=== PATIENT | male | born 1980 | race Caucasian/White ===

== ENCOUNTER 2016-07-29 01:58 | Emergency (ER) | payer MEDICAID ==
[2016-07-29 02:58] LABS: % IMMATURE GRANULYOCYTES 0.5 % (0.0-1.1); ABSOLUTE IMMATURE GRANULOCYTES 0.04 10^3/uL (0.00-0.10); ADD DIFF? NO; ADD MORPH? NO; ADD SCAN? NO; ATYPICAL LYMPHOCYTE FLAG 50 (0-99); FRAGMENT RBC FLAG 0 (0-99); HEMATOCRIT 46.2 % (40.0-51.0); HEMOGLOBIN 16.1 g/dL (13.7-17.5); LEFT SHIFT FLG 0 (0-99); LIPEMIA HEMOLYSIS FLAG 90 (0-99); MEAN CELL HEMOGLOBIN 31.8 pg (27.9-34.1); MEAN CELL HEMOGLOBIN CONCENTR. 34.8 g/dL (32.4-36.7); MEAN CELL VOLUME 91.1 fL (81.5-99.8); MEAN PLATELET VOLUME 9.4 fL (8.7-11.7); PLATELET CLUMPS FLAG 30 (0-99); PLATELET COUNT 401 10^3/uL (150-400); RED BLOOD CELL COUNT 5.07 10^6/uL (4.40-6.38); RED CELL DISTRIBUTION WIDTH 12.2 % (11.5-15.2)
[2016-07-29 03:07] LABS: ANION GAP 19 mEq/L (8-16); CALCIUM 9.3 mg/dL (8.5-10.4); CARBON DIOXIDE 26 mEq/l (22-31); CHLORIDE 105 mEq/L (97-110); CREATININE 0.8 mg/dL (0.7-1.3); ETHANOL SERUM 113 mg/dL (0-10); GLOMERULAR FILTRATION RATE > 60; GLUCOSE 79 mg/dL (70-100); POTASSIUM 3.6 mEq/L (3.5-5.2); SODIUM 150 mEq/L (134-144)
--- NOTE | 2016-07-29 03:10 | EDPHY ---
HPI/HX/ROS/PE/MDM Narrative: Chief complaint: Suicidal ideation HPI: 36-year-old male presenting complaining of thoughts of suicide. He is thinking of hanging himself. Patient states that he has a history of depression in the past and has had a mental health admission and [place] in the past. He is not currently taking any medications. States that he has lost his place in a fdc and has opportunity for implement recently and this is causing him to feel increasingly depressed and suicidal. He has prior suicide attempts in the past. Does smoke, does drink occasional alcohol, does use occasional recreational drugs. Denies any recent illness. No fevers or chills. Denies any hallucinations. ROS: 10 point Review of Systems is negative except as noted in the HPI. Physical exam: Gen: Awake, Alert, No Distress HEENT: Nose: no rhinorrhea Eyes: PERRLA, EOMI Mouth: Moist mucosa Neck: Supple, no JVD Chest: nontender, lungs clear to auscultation Heart: S1, S2 normal, no murmur Abd: Soft, non-tender, no guarding Back: no CVA tenderness, no midline tenderness Ext: no edema, non-tender Skin: no rash Neuro: CN II-XII intact, Sensation grossly intact, Strength 5/5 in bilateral upper and lower extremities (Franki Smyth) 1500: Patient is signed out to me at change of shift by Dr. Hagan. I reviewed the chart. I went personally evaluated the patient. At the time of transfer care he was stable with no new complaints. 18 50: Psychiatric Services found placement for the patient. Placement facility requested an EKG due to cocaine use. EKG shows normal sinus rhythm, normal rate, normal axis, normal intervals. There are no ST or T-wave abnormalities. EKG is normal as interpreted by me. Patient is stable for transfer. (Tami Washington) ED Course: 36-year-old depressed mood with suicidal ideation here he is here voluntarily. Will go perform medical screening tests for medical clearance and obtained a health evaluation. Patient is medically cleared. Awaiting mental health evaluation. 0700 patient signed out to Dr. Scott pending mental health evaluation. (Franki Smyth) Care assumed 640am plan for psych evaluation. Not on mental health hold. 1030: placed on M1 by mental health clinic nurse, plan for psychiatric admission. Signed out to Dr. Tami Washington at 3:00 p.m. with plan for inpatient psychiatric placement. (Rashid Scott) - Data Points Laboratory Results: Laboratory Results 07/29/16 02:38 07/29/16 02:38 Medications Given: Discontinued Medications Lorazepam (Ativan) 1 mg PO EDNOW ONE Stop: 07/29/16 04:31 Last Admin: 07/29/16 04:30 Dose: 1 mg Lorazepam (Ativan) 1 mg PO EDNOW ONE Stop: 07/29/16 10:50 Last Admin: 07/29/16 10:51 Dose: 1 mg General Time Seen by Provider: 07/29/16 02:13 Initial Vital Signs: Initial Vital Signs Temperature (C) 36.4 C 07/29/16 02:04 Heart Rate 130 H 07/29/16 02:04 Respiratory Rate 16 07/29/16 02:04 Blood Pressure 156/109 H 07/29/16 02:04 O2 Sat (%) 93 07/29/16 02:04 O2 Delivery Mode Room Air O2 (L/minute) 95 Allergies/Adverse Reactions: No Known Allergies Allergy (Unverified 07/29/16 02:02) Home Medications: Medication Instructions Recorded Losartan Potassium 02/16/16 Adderall Xr 30 mg Capsule 07/29/16 Clonidine 07/29/16 Sonata 07/29/16 Departure - Departure Disposition: Other Psych, Not Justice Clinical Impression: Severe major depression Condition: Good Instructions: Depression (ED), Suicide Prevention for Adults (ED) Referrals: IN STATE,. [Primary Care Provider] - As per Instructions [facility] [Outside] - As per Instructions
[2016-07-29] MEDS ORDERED: LORazepam 1 MG TAB ONE ×3 (04:23→19:32)
[2016-07-29] MEDS ORDERED: LORazepam 1 MG TAB PO ONE ×3 (04:30→20:23)
[2016-07-29 07:46] VITALS: TEMP 98.4
--- NOTE | 2016-07-29 18:46 | CPEKG ---
Heart Rate: 75 RR Interval: 800 P-R Interval: 160 QRSD Interval: 80 QT Interval: 356 QTC Interval: 398 P Canby: 50 QRS Canby: 42 T Wave Canby: 49 EKG Severity - NORMAL ECG - EKG Impression: SINUS RHYTHM Electronically Signed By: Tami Washington 29-Jul-2016 22:03:24
[2016-07-29 19:03] VITALS: RESP 16; O2SAT 95
[2016-07-29 20:19] VITALS: BP 147/81; PULSE 81
[2016-07-30] MEDS ORDERED: LOSARTAN POTASSIUM 50 MG TAB PO ONE (19:51)
== END 2016-07-29 20:33 ==
DX: F32.9 Major depressive disorder, single episode, unspecified (principal)
CPT/HCPCS: G0477; G0480

== ENCOUNTER 2016-08-01 23:19 | Emergency (ER) | payer MEDICAID ==
[2016-08-01] MEDS ORDERED: LORazepam 1 MG TAB PO ONE (23:39)
--- NOTE | 2016-08-01 23:42 | EDPHY ---
H & P Stated Complaint: SI/HI, here earlier this wk for same c/o - Personal History Current Tetanus/Diphtheria Vaccine: Yes Current Tetanus Diphtheria and Acellular Pertussis (TDAP): Yes Tetanus Vaccine Date: 2011 - Medical/Surgical History Hx Asthma: No Hx Chronic Respiratory Disease: No Hx Diabetes: No Hx Cardiac Disease: No Hx Renal Disease: No Hx Cirrhosis: No Hx Alcoholism: No Hx HIV/AIDS: No Hx Splenectomy or Spleen Trauma: No Other PMH: HTN, anxiety, chronic pain, rt arm surgery - Social History Smoking Status: Current every day smoker HPI/ROS: Chief complaint: Suicidal ideation History of present illness: This is a 36-year-old male who presents to the emergency department for suicidal ideation. Patient was seen earlier this week for similar. Ultimately he was admitted to an inpatient psychiatric facility. He was just recently discharged. He feels like he was not ready to be discharged. He is very upset about being discharged. He states he is having return of thoughts of killing himself. Specifically thoughts of hanging himself. He is also having thoughts of hurting other people, no one in specific , as he is very frustrated with the situation. He denies illness or injury. Review of systems: A 10 point review of systems was obtained and other than described above was negative (Emmanuel Esparza) - Physical Exam Exam: General Appearance: Alert, nontoxic. Eyes: Pupils equal and round no pallor or injection. ENT, Mouth: Mucous membranes moist. Respiratory: There are no retractions, lungs are clear to auscultation. Cardiovascular: Regular rate and rhythm. Gastrointestinal: Abdomen is soft and non tender, no masses, bowel sounds normal. Neurological: Alert. Strength and sensation intact and symmetrical. Skin: Warm and dry, no rashes. Musculoskeletal: Neck is supple non tender. Extremities are symmetrical, full range of motion. Psychiatric: Patient is very agitated. (Emmanuel Esparza) Constitutional: Initial Vital Signs Temperature (C) 36.7 C 08/01/16 23:22 Heart Rate 103 H 08/01/16 23:22 Respiratory Rate 16 08/01/16 23:22 Blood Pressure 150/107 H 08/01/16 23:22 O2 Sat (%) 96 08/01/16 23:22 O2 Delivery Mode Room Air Allergies/Adverse Reactions: No Known Allergies Allergy (Verified 08/01/16 23:21) Home Medications: Medication Instructions Recorded Losartan Potassium [Cozaar] 100 mg PO DAILY 02/16/16 Clonidine HCl 0.3 mg PO HS 07/29/16 Dextroamphetamine/Amphetamine 30 mg PO DAILY 07/29/16 [Adderall Xr 30 mg Capsule] Zaleplon [Sonata] 5 mg PO HS 07/29/16 traMADol [Ultram 50 mg (*)] 50 - 100 mg PO DAILY PRN 08/02/16 Medical Decision Making ED Course/Re-evaluation: Patient seen under the supervision of my secondary supervising physician Dr. Edward Henry. Patient presents to the emergency department reporting suicidal ideation with plan. Patient will be medically evaluated and if cleared psychiatric evaluation will be undertaken. Care of patient turned over to Dr. Edward Henry at end of shift. (Emmanuel Esparza) 0644: No acute events overnight. Patient placed on a retainer here with suicidal ideation recent hospitalization for inpatient psychiatric care his plans to hang himself. He did come in here voluntarily however due to threats of wanting to hang himself and suicidal I placed him on to detain her he will need mental health evaluation. 0700: Patient signed over to Dr. Chai Foster at 7:00 a.m. chief change. ( Edward Henry) Patient has remained stable on my shift. He has been evaluated. They are looking for placement (Chai Foster) I assumed care of the patient at 0700 pending psychiatric placement. The patient was evaluated at 5:00 p.m. and the case was discussed by the on- call psychiatrist with the [facility]. The patient is not suicidal or homicidal currently. The patient does report making the statements earlier today but states that he primarily was making them because he is somewhat frustrated by his current social situation. The patient has told the mental health acreage reporter he essentially would like to have a place to stay this evening. He does not meet criteria for 72 hour mental health hold at this point time. The patient is interested in a respite bed this evening. The patient will be placed in the [facility] respite bed this evening. He does contract for safety and will return to the ED should he develop suicidal ideation, homicidal ideation or have worsening symptoms of depression. (Edwar Verma) Differential Diagnosis: Included but not limited to anxiety, depression, bipolar, schizophrenia, substance abuse (Emmanuel Esparza) Care Turn Over: Care to Dr. Verma at 3:00 p.m. (Chai Foster) - Data Points Laboratory Results: Laboratory Results 08/01/16 00:14 08/02/16 06:18 08/02/16 06:18 Sodium 140 mEq/L (134-144) Potassium 3.4 L mEq/L (3.5-5.2) Chloride 105 mEq/L (97-110) Carbon Dioxide 27 mEq/l (22-31) Anion Gap 8 mEq/L (8-16) BUN 32 H mg/dL (7-23) Creatinine 1.0 mg/dL (0.7-1.3) Estimated GFR > 60 Glucose 87 mg/dL (70-100) Calcium 8.2 L D mg/dL (8.5-10.4) Medications Given: Discontinued Medications Clonazepam (Klonopin) 1 mg PO EDNOW ONE Stop: 08/02/16 00:13 Last Admin: 08/02/16 00:17 Dose: 1 mg Clonazepam (Klonopin) 1 mg PO EDNOW ONE Stop: 08/02/16 01:19 Last Admin: 08/02/16 01:25 Dose: 1 mg Clonazepam (Klonopin) 2 mg PO EDNOW ONE Stop: 08/02/16 16:27 Last Admin: 08/02/16 16:33 Dose: 2 mg Sodium Chloride (Ns) 1,000 mls @ 0 mls/hr IV ONCE ONE PRN Reason: Wide Open Stop: 08/02/16 01:11 Last Admin: 08/02/16 02:20 Dose: 1,000 mls Sodium Chloride (Ns) 1,000 mls @ 0 mls/hr IV ONCE ONE PRN Reason: Wide Open Stop: 08/02/16 01:11 Last Admin: 08/02/16 05:19 Dose: 1,000 mls Lorazepam (Ativan) 1 mg PO EDNOW ONE Stop: 08/01/16 23:40 Last Admin: 08/02/16 00:13 Dose: Not Given Nicotine (Nicoderm Cq) 14 mg TD EDNOW ONE Stop: 08/02/16 16:35 Last Admin: 08/02/16 16:40 Dose: 14 mg Tramadol HCl (Ultram) 50 mg PO EDNOW ONE Stop: 08/02/16 16:27 Last Admin: 08/02/16 16:33 Dose: 50 mg Departure - Departure Disposition: Home, Routine, Self-Care Clinical Impression: Depression, Anxiety Condition: Good Instructions: Depression (ED) Additional Instructions: 1. Please follow-up with the mental health resources provided in the ED today. 2. [facility] does operate a 24/ psychiatric crisis unit located at [facility]. The telephone number for the 24 hour crisis center is [phone]. 3. Please return to the ED if you are feeling suicidal, having thoughts of harming yourself/others or should you feel unsafe or have worsening symptoms. Referrals: IN STATE,. [Primary Care Provider] - As per Instructions
[2016-08-02] MEDS ORDERED: clonazePAM 1 MG TAB PO ONE ×3 (00:12→16:26)
[2016-08-02 00:25] LABS: % IMMATURE GRANULYOCYTES 0.8 % (0.0-1.1); ABSOLUTE IMMATURE GRANULOCYTES 0.11 10^3/uL (0.00-0.10); ADD DIFF? NO; ADD MORPH? NO; ADD SCAN? NO; ATYPICAL LYMPHOCYTE FLAG 20 (0-99); FRAGMENT RBC FLAG 0 (0-99); HEMATOCRIT 45.1 % (40.0-51.0); HEMOGLOBIN 15.8 g/dL (13.7-17.5); LEFT SHIFT FLG 0 (0-99); LIPEMIA HEMOLYSIS FLAG 90 (0-99); MEAN CELL HEMOGLOBIN 31.3 pg (27.9-34.1); MEAN CELL VOLUME 89.3 fL (81.5-99.8); MEAN PLATELET VOLUME 9.4 fL (8.7-11.7); PLATELET CLUMPS FLAG 0 (0-99); PLATELET COUNT 384 10^3/uL (150-400); RED BLOOD CELL COUNT 5.05 10^6/uL (4.40-6.38); RED CELL DISTRIBUTION WIDTH 12.1 % (11.5-15.2)
[2016-08-02 00:43] LABS: ANION GAP 14 mEq/L (8-16); CALCIUM 9.8 mg/dL (8.5-10.4); CARBON DIOXIDE 28 mEq/l (22-31); CHLORIDE 98 mEq/L (97-110); CREATININE 1.9 mg/dL (0.7-1.3); ETHANOL SERUM < 10 mg/dL (0-10); GLOMERULAR FILTRATION RATE 40; GLUCOSE 85 mg/dL (70-100); POTASSIUM 4.5 mEq/L (3.5-5.2); SODIUM 140 mEq/L (134-144)
[2016-08-02] MEDS ORDERED: NS 1,000 ML IV ONE ×2 (01:10)
[2016-08-02 01:44] LABS: COLOR YELLOW; LEUKOCYTE ESTERASE,URINE NEGATIVE (NEGATIVE); NITRITE,URINE NEGATIVE (NEGATIVE)
[2016-08-02 06:37] LABS: ANION GAP 8 mEq/L (8-16); CALCIUM 8.2 mg/dL (8.5-10.4); CARBON DIOXIDE 27 mEq/l (22-31); CHLORIDE 105 mEq/L (97-110); GLOMERULAR FILTRATION RATE > 60; GLUCOSE 87 mg/dL (70-100); POTASSIUM 3.4 mEq/L (3.5-5.2); SODIUM 140 mEq/L (134-144)
[2016-08-02] MEDS ORDERED: traMADol 50 MG TAB PO ONE (16:26)
[2016-08-02] MEDS ORDERED: NICOTINE 14 MG/24 HR PATCH TD ONE (16:34)
[2016-08-02] MEDS ORDERED: LORAZEPAM 1 MG PREPACK#4 BTL TAKEHOME ONE (17:50)
[2016-08-02] MEDS ORDERED: IBUPROFEN 600 MG TAB PO ONE (17:59)
[2016-08-02 18:12] VITALS: BP 120/87; PULSE 90; RESP 18; TEMP 98.2; O2SAT 98
== END 2016-08-02 18:18 | disposition home or self-care (01) ==
DX: F41.9 Anxiety disorder, unspecified (principal); F32.9 Major depressive disorder, single episode, unspecified; I10 Essential (primary) hypertension; F17.200 Nicotine dependence, unspecified, uncomplicated
CPT/HCPCS: 80305; G0480

== ENCOUNTER 2016-09-16 15:30 | Emergency (ER) | payer MEDICAID ==
[2016-09-16] MEDS ORDERED: OLANZapine DISINTEGR 5 MG TAB PO ONE (16:06)
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
[2016-09-16 16:27] LABS: % IMMATURE GRANULYOCYTES 0.6 % (0.0-1.1); ABSOLUTE IMMATURE GRANULOCYTES 0.05 10^3/uL (0.00-0.10); ADD DIFF? NO; ADD MORPH? NO; ADD SCAN? NO; ATYPICAL LYMPHOCYTE FLAG 20 (0-99); FRAGMENT RBC FLAG 0 (0-99); HEMATOCRIT 42.9 % (40.0-51.0); HEMOGLOBIN 14.7 g/dL (13.7-17.5); LEFT SHIFT FLG 0 (0-99); LIPEMIA HEMOLYSIS FLAG 90 (0-99); MEAN CELL HEMOGLOBIN 31.1 pg (27.9-34.1); MEAN CELL HEMOGLOBIN CONCENTR. 34.3 g/dL (32.4-36.7); MEAN CELL VOLUME 90.7 fL (81.5-99.8); MEAN PLATELET VOLUME 9.1 fL (8.7-11.7); PLATELET CLUMPS FLAG 20 (0-99); PLATELET COUNT 389 10^3/uL (150-400); RED BLOOD CELL COUNT 4.73 10^6/uL (4.40-6.38); RED CELL DISTRIBUTION WIDTH 12.1 % (11.5-15.2)
[2016-09-16 16:38] LABS: ANION GAP 10 mEq/L (8-16); CARBON DIOXIDE 28 mEq/l (22-31); CHLORIDE 100 mEq/L (97-110); CREATININE 0.8 mg/dL (0.7-1.3); ETHANOL SERUM < 10 mg/dL (0-10); GLOMERULAR FILTRATION RATE > 60; GLUCOSE 90 mg/dL (70-100); POTASSIUM 3.7 mEq/L (3.5-5.2); SODIUM 138 mEq/L (134-144)
[2016-09-16] MEDS ORDERED: LORazepam 1 MG TAB ONE (18:15)
[2016-09-16] MEDS ORDERED: LORazepam 1 MG TAB PO ONE (18:17)
[2016-09-16] MEDS ORDERED: ZOLPIDEM TARTRATE 5 MG TAB PO ONE (22:06)
[2016-09-16 22:50] VITALS: PULSE 84
[2016-09-17 03:45] LABS: ALANINE AMINOTRANSFERASE 43 IU/L (21-72); ALBUMIN 4.2 g/dL (3.5-5.0); ALKALINE PHOSPHATASE 80 IU/L (38-126); ASPARTATE AMINOTRANSFERASE 59 IU/L (17-59); BILIRUBIN,TOTAL 0.7 mg/dL (0.1-1.4); BILIRUBIN-CONJUGATED 0.3 mg/dL (0.0-0.5); BILIRUBIN-UNCONJUGATED 0.4 mg/dL (0.0-1.1); SALICYLATE < 1.0 mg/dL (2.0-20.0); TOTAL PROTEIN 7.1 g/dL (6.3-8.2)
[2016-09-17] MEDS ORDERED: traMADol 50 MG TAB ONE (05:45)
[2016-09-17] MEDS ORDERED: traMADol 50 MG TAB PO ONE (05:47)
[2016-09-17 06:35] VITALS: BP 135/95; RESP 18; TEMP 98.6; O2SAT 97
--- NOTE | 2016-11-10 09:35 | EDPHY ---
PA Addendum - Addendum .: FINAL DIAGNOSIS SUICIDAL IDEATION DISPOSITION OTHER PSYCH FACILITY, NOT [facility].
== END 2016-09-17 06:35 ==
DX: R45.851 Suicidal ideations (principal); I10 Essential (primary) hypertension; F17.200 Nicotine dependence, unspecified, uncomplicated
CPT/HCPCS: 80305; G0480

== ENCOUNTER 2016-09-23 03:04 | Emergency (ER) | payer MEDICAID ==
[2016-09-23 03:16] VITALS: RESP 18; O2SAT 97
[2016-09-23 04:36] LABS: % IMMATURE GRANULYOCYTES 0.5 % (0.0-1.1); ABSOLUTE IMMATURE GRANULOCYTES 0.05 10^3/uL (0.00-0.10); ADD DIFF? NO; ADD MORPH? NO; ADD SCAN? NO; ATYPICAL LYMPHOCYTE FLAG 10 (0-99); FRAGMENT RBC FLAG 0 (0-99); HEMATOCRIT 47.3 % (40.0-51.0); HEMOGLOBIN 16.1 g/dL (13.7-17.5); LEFT SHIFT FLG 0 (0-99); LIPEMIA HEMOLYSIS FLAG 90 (0-99); MEAN CELL HEMOGLOBIN 31.6 pg (27.9-34.1); MEAN CELL VOLUME 92.9 fL (81.5-99.8); MEAN PLATELET VOLUME 9.4 fL (8.7-11.7); PLATELET CLUMPS FLAG 0 (0-99); PLATELET COUNT 401 10^3/uL (150-400); RED BLOOD CELL COUNT 5.09 10^6/uL (4.40-6.38); RED CELL DISTRIBUTION WIDTH 11.9 % (11.5-15.2)
[2016-09-23] MEDS ORDERED: LORazepam 1 MG TAB PO ONE ×2 (04:42→09:47)
[2016-09-23 04:51] LABS: ALANINE AMINOTRANSFERASE 96 IU/L (21-72); ALBUMIN 4.4 g/dL (3.5-5.0); ALKALINE PHOSPHATASE 59 IU/L (38-126); ANION GAP 9 mEq/L (8-16); ASPARTATE AMINOTRANSFERASE 66 IU/L (17-59); BILIRUBIN,TOTAL 0.7 mg/dL (0.1-1.4); CARBON DIOXIDE 31 mEq/l (22-31); CHLORIDE 101 mEq/L (97-110); CREATININE 1.2 mg/dL (0.7-1.3); ETHANOL SERUM < 10 mg/dL (0-10); GLOMERULAR FILTRATION RATE > 60; GLUCOSE 73 mg/dL (70-100); POTASSIUM 4.4 mEq/L (3.5-5.2); SODIUM 141 mEq/L (134-144); TOTAL PROTEIN 7.4 g/dL (6.3-8.2)
--- NOTE | 2016-09-23 06:08 | EDPHY ---
H & P Stated Complaint: SIChauncey JUST RELEASED FROM [facility] Source: Patient Exam Limitations: No limitations - Personal History Current Tetanus/Diphtheria Vaccine: Yes Current Tetanus Diphtheria and Acellular Pertussis (TDAP): Yes Tetanus Vaccine Date: 2011 - Medical/Surgical History Hx Asthma: No Hx Chronic Respiratory Disease: No Hx Diabetes: No Hx Cardiac Disease: No Hx Renal Disease: No Hx Cirrhosis: No Hx Alcoholism: No Hx HIV/AIDS: No Hx Splenectomy or Spleen Trauma: No Other PMH: HTN, anxiety, chronic pain, rt arm surgery - Social History Smoking Status: Current every day smoker Time Seen by Provider: 09/23/16 03:54 HPI/ROS: HPI The patient presents with suicidal ideation with plan to slit his wrists with a razor. He has been feeling this way for the last 1 day, he is not sure what brought it on. He thinks it would be beneficial if he because then his half-sister may be able to get some money. He says he has a history of depression, he was seen here on September 16 and transferred to an inpatient psychiatric hospital, he was there for 2 or 3 days. He is not sure if it helped him. He says he is taking his medications periodically. He currently does not have a place to stay. He was previously staying in a retirement, however he was kicked out after he made threatening statements to staff there. REVIEW OF SYSTEMS Constitutional: No fever, no chills. Eyes: No discharge. ENT: No sore throat. Cardiovascular: No chest pain, no palpitations. Respiratory: No cough, no shortness of breath. Gastrointestinal: No abdominal pain, no vomiting. Genitourinary: No hematuria. Musculoskeletal: No back pain. Skin: No rashes. Neurological: No headache. PMHx: Hypertension, anxiety, depression Soc Hx: Currently homeless, denies drug use PHYSICAL General Appearance: Alert, no distress Eyes: Pupils equal and round no pallor or injection ENT, Mouth: Mucous membranes moist Respiratory: There are no retractions, lungs are clear to auscultation Cardiovascular: Regular rate and rhythm Gastrointestinal: Abdomen is soft and non-tender, no masses, bowel sounds normal Neurological: A&O, moves all extremities Skin: Warm and dry, no rashes Musculoskeletal: Neck is supple non tender Extremities: symmetrical, full range of motion Psychiatric: Patient is oriented X 3, there is no agitation (Riguzzi,Delmis) Constitutional: Initial Vital Signs Temperature (C) 36.7 C 09/23/16 03:13 Heart Rate 104 H 09/23/16 03:13 Respiratory Rate 18 09/23/16 03:13 Blood Pressure 132/89 H 09/23/16 03:13 O2 Sat (%) 97 09/23/16 03:13 O2 Delivery Mode Room Air Allergies/Adverse Reactions: No Known Allergies Allergy (Verified 09/23/16 03:17) Home Medications: Medication Instructions Recorded Losartan Potassium [Cozaar] 100 mg PO DAILY 02/16/16 Clonidine HCl 0.3 mg PO HS 07/29/16 Dextroamphetamine/Amphetamine 30 mg PO DAILY 07/29/16 [Adderall Xr 30 mg Capsule] Zaleplon [Sonata] 5 mg PO HS 07/29/16 traMADol [Ultram 50 mg (*)] 50 - 100 mg PO DAILY PRN 08/02/16 Medical Decision Making ED Course/Re-evaluation: 6:30 a.m.- The patient is medically cleared. Labs are unremarkable. He is currently being evaluated by the mental health worker. Upon her arrival, he became upset and was noncooperative with the history. He feels frustrated that he is being asks the same questions again and again and is angry about this. (Delmis Cagle) I took over care of this patient at 7:00 a.m.. He is still to be evaluated by Behavioral Health. He is on an M1 hold. 10:15 a.m., informed by Behavioral Health the patient will be discharged to CSU. The on-call psychiatrist, Dr. Vigil is very familiar with this patient. The patient's remaining emergency department course under my care has been uneventful. He was discharged to CSU in stable and improved condition. ( Skye Dubois) Differential Diagnosis: This is a 36-year-old homeless man with past medical history of anxiety, depression, hypertension, chronic pain who presents bringing himself in because he is feeling suicidal with a plan to slit his wrist. This is similar to his prior presentation about 1 week ago. He was recently in an inpatient psychiatric facility for several days. He then was discharged and now has no place to stay as he was kicked out of his retirement. Differential diagnosis includes suicidal ideation related to depression, retirement seeking, polysubstance abuse. (Delmis Cagle) - Data Points Laboratory Results: Laboratory Results 09/23/16 04:30 09/23/16 04:30 09/23/16 09/23/16 09/23/16 04:30 04:30 03:15 WBC 10.36 10^3/uL H 10^3/uL (3.80-9.50) RBC 5.09 10^6/uL 10^6/uL (4.40-6.38) Hgb 16.1 g/dL g/dL (13.7-17.5) Hct 47.3 % % (40.0-51.0) MCV 92.9 fL fL (81.5-99.8) MCH 31.6 pg pg (27.9-34.1) MCHC 34.0 g/dL g/dL (32.4-36.7) RDW 11.9 % % (11.5-15.2) Plt Count 401 10^3/uL H 10^3/uL (150-400) MPV 9.4 fL fL (8.7-11.7) Neut % (Auto) 62.4 % % (39.3-74.2) Lymph % (Auto) 26.6 % % (15.0-45.0) [place] % (Auto) 8.1 % % (4.5-13.0) Eos % (Auto) 1.8 % % (0.6-7.6) Baso % (Auto) 0.6 % % (0.3-1.7) Nucleat RBC Rel Count 0.0 % % (0.0-0.2) Absolute Neuts (auto) 6.46 10^3/uL 10^3/uL (1.70-6.50) Absolute Lymphs (auto) 2.76 10^3/uL 10^3/uL (1.00-3.00) Absolute Monos (auto) 0.84 10^3/uL H 10^3/uL (0.30-0.80) Absolute Eos (auto) 0.19 10^3/uL 10^3/uL (0.03-0.40) Absolute Basos (auto) 0.06 10^3/uL 10^3/uL (0.02-0.10) Absolute Nucleated RBC 0.00 10^3/uL 10^3/uL (0-0.01) Immature Gran % 0.5 % % (0.0-1.1) Immature Gran # 0.05 10^3/uL 10^3/uL (0.00-0.10) Sodium 141 mEq/L mEq/L (134-144) Potassium 4.4 mEq/L mEq/L (3.5-5.2) Chloride 101 mEq/L mEq/L (97-110) Carbon Dioxide 31 mEq/l mEq/l (22-31) Anion Gap 9 mEq/L mEq/L (8-16) BUN 29 mg/dL H mg/dL (7-23) Creatinine 1.2 mg/dL mg/dL (0.7-1.3) Estimated GFR > 60 Glucose 73 mg/dL mg/dL (70-100) Calcium 10.0 mg/dL mg/dL (8.5-10.4) Total Bilirubin 0.7 mg/dL mg/dL (0.1-1.4) AST 66 IU/L H IU/L (17-59) ALT 96 IU/L H IU/L (21-72) Alkaline Phosphatase 59 IU/L IU/L (38-126) Total Protein 7.4 g/dL g/dL (6.3-8.2) Albumin 4.4 g/dL g/dL (3.5-5.0) Urine Opiates Screen NEGATIVE (NEGATIVE) Urine Barbiturates NEGATIVE (NEGATIVE) Ur Phencyclidine Scrn NEGATIVE (NEGATIVE) Ur Amphetamine Screen NEGATIVE (NEGATIVE) U Benzodiazepines Scrn NEGATIVE (NEGATIVE) Urine Cocaine Screen NEGATIVE (NEGATIVE) U Marijuana (THC) Screen NEGATIVE (NEGATIVE) Ethyl Alcohol < 10 mg/dL mg/dL (0-10) Medications Given: Discontinued Medications Lorazepam (Ativan) 1 mg PO ONCE ONE Stop: 09/23/16 04:43 Last Admin: 09/23/16 04:45 Dose: 1 mg Lorazepam (Ativan) 1 mg PO EDNOW ONE Stop: 09/23/16 09:48 Last Admin: 09/23/16 09:50 Dose: 1 mg Departure - Departure Disposition: Home, Routine, Self-Care Clinical Impression: Situational depression Condition: Good Instructions: Depression (ED) Additional Instructions: Follow the instructions given to you by Behavioral Health regarding your discharge to a CSU facility. Return to the emergency department for any worsening of depression or other serious concerns. Referrals: MARTINA HEBERT [Other] - As per Instructions [facility] [Clinic] - As per Instructions
[2016-09-23 09:03] VITALS: BP 138/91; PULSE 90; TEMP 97.5
== END 2016-09-23 14:48 | disposition home or self-care (01) ==
DX: F43.21 Adjustment disorder with depressed mood (principal); I10 Essential (primary) hypertension; F17.200 Nicotine dependence, unspecified, uncomplicated
CPT/HCPCS: 80305; G0480